=== PATIENT | female | born 1995 | race African-American/Black ===

== ENCOUNTER 2025-04-08 20:13 | Emergency (ER) | payer OTHER, SELFPAY ==
[2025-04-08 20:18] VITALS: BP 124/71
[2025-04-08 22:02] LABS: HCG, Urine Qualitative Screen Positive
[2025-04-08 23:20] VITALS: BP 128/74
[2025-04-08 23:25] VITALS: BMI 28.9
--- NOTE | 2025-04-08 23:49 | ED.GENMED ---
History of Present Illness
General
Chief Complaint: Problems
Source: patient
Exam Limitations: none
Time Seen by Provider: 04/08/25 23:45
Nursing documentation reviewed up to this point in time: agreed with
History of Present Illness
History of Present Illness:
Note:
CHIEF COMPLAINT(S)
Vaginal bleeding in early .
HISTORY OF PRESENT ILLNESS
The patient is a 29-year-old female, , presenting with vaginal bleeding at approximately 11 weeks of gestation. She reports that the bleeding began on Monday evening and has persisted. The bleeding is not profuse, as the patient is not
saturating multiple pads per hour. She reports some mild cramping earlier, which has resolved. There is no accompanying dizziness or lightheadedness. The patient denies any significant low back pain. She denies any syncopal episodes. She denies
any chest pain or fevers or chills. She has an appointment with [facility] at [facility] on . Patient denies dysuria, increased urinary frequency. She has had a in the past.
PHYSICAL EXAM
Nursing notes reviewed and vital signs reviewed.
General: Patient is well appearing and in no acute distress; non-toxic
Skin: Warm and dry, no rashes or lesions
Head: Normocephalic, atraumatic
Eyes: Sclera non-icteric. EOMs intact.
Cardiac: Regular rate and rhythm, no murmurs
Pulm: Normal respiratory effort, no wheezes, rales, or rhonchi
Abdomen: No abdominal tenderness to palpation
Neuro: CN II-XII intact, no focal neurologic deficits.
Psychiatric: Appropriate mood and affect.
PLAN
CBC, CMP, beta-hCG, urine, type and screen, ultrasound
DIFFERENTIAL DIAGNOSIS
The Differential Diagnosis includes, in no particular order and is not limited to:
1. Spontaneous
2. Threatened
3. Ectopic
4. Molar
5. Gestational trophoblastic disease
6. Placental abruption
7. Subchorionic hematoma
8. Cervical polyp
9. Uterine fibroids
10. Infection (e.g., endometritis)
REVIEW OF PRIOR RECORDS
No previous ER physician documentation to review
MDM/DISPOSITION
The patient is a 29-year-old female, , presenting with vaginal bleeding at approximately 11 weeks of gestation. She currently denies any pelvic pain or abdominal pain. She has no dysuria. On physical exam she is well-appearing in no acute
distress. Her vital signs are stable. She went for ultrasound which shows irregular intrauterine gestational sac without yolk sac or pole and findings are suspicious for failure. There is no evidence of adnexal masses.
Communicated findings with patient. CBC and CMP unremarkable. Hemoglobin does show mild anemia. Patient stable for discharge. Patient does have an appointment scheduled for [facility] the following day. Discussed repeat blood work and
repeat imaging in the future. Patient stable for discharge.
Review of Systems
Review of Systems
All Other Systems: ROS reviewed and negative except as documented in HPI and ROS
Phy Exam
Physical Exam
Physical Exam:
see hpi
Course
Orders/Labs/Results
Orders:
Orders
04/08/25 21:13
US W Transvaginal Urgent
Reason For Exam: vaginal spotting
04/08/25 21:41
Test Result ONCE
04/08/25 21:52
, Urine Qualitative Screen [HCG, Urine Qualitative Screen] Urgent
Date Specimen was Collected: 04/08/25
Time Specimen was Collected: 21:41
04/08/25 23:15
HCG, Beta Quantitative [Beta HCG Quantitative] Urgent
Is this a screen?: No
04/08/25 23:16
CBC/No Diff [Complete Blood Count/No Diff] Urgent
Comprehensive Metabolic Panel Urgent
04/08/25 23:51
ABO [Blood Group&Type] Urgent
04/09/25 00:19
ABO2 Urgent
BBK Wristband Number:
Associate notified that ABO2 has been ordered: [id number]
Date: 04/09/25
Time: 00:10
[employer] Advisor ID: [id number]
Abnormal Lab Results
04/09/25
00:05
RBC 3.64 L 10^6/uL
(4.20-5.40)
Hgb 11.1 L g/dL
(12.0-16.0)
Hct 32.7 L %
(37.0-47.0)
04/09/25 00:05
04/09/25 00:05
Vital Signs
Initial and Last Documented VS:
Initial Vital Signs
Temp Pulse Resp BP Pulse Ox
98.2 F 84 20 124/71 99
04/08/25 20:18 04/08/25 20:18 04/08/25 20:18 04/08/25 20:18 04/08/25 20:18
Last Documented Vital Signs
Temp Pulse Resp BP Pulse Ox
98.2 F 72 16 128/74 100
04/08/25 20:18 04/08/25 23:20 04/08/25 23:20 04/08/25 23:20 04/08/25 23:50
Information
Weeks gestation: N/A
Location: Location: (intrauterine gestational sac without yolk sac or pole)
*Pulse Oximetry
SaO2: 100
Oxygen Mode of Delivery: Room air
Patient hypoxic: no
*Critical Care Note
Total Time (30-74mins, 75-104mins- exclusive of procedures): Not Applicable
ED Attending Note
-
Portions of this chart may have been created with voice recognition software.� Occasional wrong word or��sound alike� substitutions may have occurred due to the inherent limitations of voice recognition software.
Discharge Plan
Departure
Patient Disposition: Home (Routine Discharge)
Date of Disposition: 04/09/25
Time of Disposition: 01:18
Patient with high blood pressure during this ER visit?: Yes
Condition: Good
Discharge Problem:
Incomplete miscarriage
Instructions: Miscarriage (DC), Bleeding in early - Discharge instructions, BLOOD PRESSURE
Prescriptions:
No Action
No Current Medications
0
Activity Restrictions/Additional Instructions:
Please have your blood work repeated and repeat imaging with your OBGYN with your scheduled appointment at [facility] [address].00 m[place]/ml
PLEASE RETURN EMERGENCY DEPARTMENT SHOULD YOU DEVELOP PERSISTENT BLEEDING, PAIN, LIGHTHEADEDNESS, FAINTING SPELLS, DIZZINESS, CHEST PAIN, SHORTNESS OF BREATH, OR ANY OTHER SIGNS OR SYMPTOMS WORRISOME TO YOU.
Interventions
Interventions:
*Risk Screen - Suicide Last Done: 04/08/25 20:18
*General Assessment Last Done: 04/08/25 20:18
*Neglect/Abuse Screening Last Done: 04/08/25 20:18
*ED- Fall Risk Assessment Last Done: 04/09/25 01:20
*ED COVID-19 Vaccine History Last Done: 04/08/25 20:18
*Nursing Disposition Last Done: 04/09/25 01:20
ED-Female Genitourinary Assessment Last Done: 04/08/25 23:20
Discharge Date and Time
Discharge Date/Time: 04/09/25 01:20
Print Language: [place]
[2025-04-09 00:11] LABS: Hematocrit 32.7 % (37.0-47.0); Hemoglobin 11.1 g/dL (12.0-16.0); Mean Corp Hgb Conc. 33.9 g/dL (33.0-37.0); Mean Corpuscular Hgb 30.5 pg (27.0-31.0); Mean Corpuscular Volume 89.8 fL (81.0-99.0); Platelet Count 209 10^3/uL (130-400); Red Blood Cell Count 3.64 10^6/uL (4.20-5.40); White Blood Cell Count 6.9 10^3/uL (4.8-10.8)
[2025-04-09 00:23] LABS: ALT (SGPT) 22 U/L (0-35); AST (SGOT) 19 U/L (14-36); Albumin 4.8 g/dl (3.5-5.0); Alkaline Phosphatase 42 U/L (38-126); Blood Urea Nitrogen 7 mg/dl (7-17); Calcium 9.9 mg/dl (8.4-10.2); Carbon Dioxide 24 mmol/L (22-30); Chloride 107 mmol/L (98-107); Estimated Creatinine Clearance > 125 ml/min; Glucose 85 mg/dl (70-99); Potassium 3.7 mmol/L (3.5-5.1); Sodium 140 mmol/L (135-145); Total Bilirubin 0.3 mg/dl (0.2-1.3); Total Protein 7.5 g/dl (6.3-8.2); eGFR > 60.00
== END 2025-04-09 01:20 | disposition home or self-care (01) ==
LOC: EMR 20:13
PROVIDERS: EMERGENCY PHYSICIAN Emergency Medicine; FAMILY PHYSICIAN Family Medicine
DX: O03.4 Incomplete spontaneous abortion without complication (principal); R03.0 Elevated blood-pressure reading, without diagnosis of hypertension
CPT/HCPCS: 99284; 76801; 76817; 80053; 81025; 84702; 85027; 86900; 86901